=== PATIENT | female | born 1990 | race African-American/Black ===

== ENCOUNTER 2018-01-18 08:00 | Inpatient (IN) | payer OTHER ==
[2018-01-17 14:25] VITALS: BMI 42.8
[2018-01-18] MEDS ORDERED: ROPIVACAINE HCL 0.5% 30ML VIAL ONE (09:40)
[2018-01-18] MEDS ORDERED: DEXAMETHASONE SOD PHOSPHATE/PF 10 MG/ML SDV ONE (09:40)
[2018-01-18] MEDS ORDERED: MIDAZOLAM HCL 2 MG/2 ML SINGLE DOSE VIAL ONE ×2 (09:42)
[2018-01-18] MEDS ORDERED: ONDANSETRON 4 MG/2 ML VIAL IVPUSH PRN (10:25)
[2018-01-18] MEDS ORDERED: LACTATED RINGERS SOLUTION 1,000 ML IV SCH (10:30)
[2018-01-18] MEDS ORDERED: BUPIVACAINE HCL/PF 0.5% (5MG/ML) 10 ML VIAL ONE (10:46)
[2018-01-18] MEDS ORDERED: ROCURONIUM BROMIDE 50 MG/5 ML VIAL ONE ×2 (11:06→12:40)
[2018-01-18] MEDS ORDERED: PROPOFOL 20 ML ONE ×2 (11:06)
--- NOTE | 2018-01-18 11:40 | HP ---
History & Physical Update - History History: No Change - Physical Physical: No Change - Assessment Assessment: No Change - Plan Plan: No Change (Laparoscopic possible open vertical sleeve gastrectomy, possible liver biopsy, EGD)
[2018-01-18] MEDS ORDERED: ceFAZolin SODIUM 1 GM VIAL IVPB ONE (11:45)
[2018-01-18] MEDS ORDERED: ceFAZolin SODIUM 1 GM VIAL ONE ×2 (11:46→12:33)
[2018-01-18] MEDS ORDERED: LIDOCAINE HCL 2% JELLY (5 ML/TUBE) ONE (12:33)
[2018-01-18] MEDS ORDERED: LIDOCAINE HCL/PF 2% SDV 5ML VIAL ONE (12:33)
[2018-01-18] MEDS ORDERED: DEXAMETHASONE SOD PHOSPHATE 4 MG/1 ML VIAL ONE (12:33)
[2018-01-18] MEDS ORDERED: NEOSTIGMINE METHYLSULFATE 0.5 MG/ML - 10 ML MDV ONE (12:35)
[2018-01-18] MEDS ORDERED: GLYCOPYRROLATE 0.2 MG/1 ML VIAL ONE (12:35)
[2018-01-18] MEDS ORDERED: BUPIVACAINE HCL/PF 0.5% (5MG/ML) 10 ML VIAL IJ ONE (12:47)
[2018-01-18] MEDS ORDERED: HYDROmorphone HCL CARPU-JECT 4 MG/1 ML DISP.SYRIN IVPB PRN (13:20)
[2018-01-18] MEDS ORDERED: METOCLOPRAMIDE HCL INJECTION 10 MG/2 ML VIAL IVPUSH SCH (13:30)
[2018-01-18] MEDS: ACETAMINOPHEN 1000 MG/100 ML VIAL (NON FORMULARY) IVPB SCH ×2 (13:45→20:12)
[2018-01-18] MEDS: ONDANSETRON 4 MG/2 ML VIAL IVPUSH SCH ×4 (14:00→21:22)
[2018-01-18 14:07] LABS: HEMATOCRIT 34.3 % (32.4-45.2); MCH 24.8 pg (25.7-33.7); MCHC 32.1 g/dl (32.0-36.0); MEAN CELL VOLUME 77.2 fl (80-96); MEAN PLT VOLUME 8.4 fl (7.5-11.1); PLATELET COUNT 276 K/MM3 (134-434); RBC 4.44 M/mm3 (3.60-5.2); RDW 14.9 % (11.6-15.6); WHITE BLOOD COUNT 22.1 K/mm3 (4.0-10.0)
[2018-01-18 14:37] LABS: ALBUMIN 3.4 g/dl (3.4-5.0); ALK PHOS 70 U/L (45-117); ANION GAP 10 (8-16); BILIRUBIN,TOTAL 0.4 mg/dL (0.2-1.0); BLOOD UREA NITROGEN 10 mg/dL (7-18); CALCIUM 8.8 mg/dL (8.5-10.1); CHLORIDE 103 mmol/L (98-107); CO2 27 mmol/L (21-32); CREATININE 0.7 mg/dL (0.55-1.02); GLUCOSE,RANDOM 147 mg/dL (74-106); POTASSIUM 3.9 mmol/L (3.5-5.1); SGOT/AST 56 U/L (15-37); SGPT/ALT 60 U/L (12-78); SODIUM 140 mmol/L (136-145); TOT PROT 7.1 g/dl (6.4-8.2)
--- NOTE | 2018-01-18 16:17 | SPEC ---
DATE OF OPERATION: 01/18/2018 SURGEON: Nakul Hughes M.D. CUSTOMS MANAGER: Chepe Brooke M.D. PREOPERATIVE DIAGNOSIS: 1. Morbid obesity. 2. Asthma. 3. Hypertension. 4. Body mass index of 42.8. POSTOPERATIVE DIAGNOSIS: Morbid obesity. 2. Asthma. 3. Hypertension. 4. Body mass index of 42.8. 5. Hepatomegaly. PROCEDURES: 1. Laparoscopic vertical sleeve gastrectomy 2. Laparoscopic wedge liver biopsy. 3. Esophagogastroduodenoscopy. ESTIMATED BLOOD LOSS: 100 mL. DRAINS: None. ANESTHESIA: GET. BOUGIE: Size 36 [place]. REASON FOR THE PROCEDURE: This is a 27-year-old female who presents to the office for weight loss options. I have described different options, decided to proceed with a laparoscopic, possible vertical sleeve gastrectomy, possible liver biopsy, possible endoscopy. RISKS AND BENEFITS: After describing the different options for weight loss management, the patient decided to proceed with a laparoscopic, possible open vertical sleeve gastrectomy. The patient was seen by the respective subspecialties and cleared for surgery. The risks and benefits of the procedure were explained. These included bleeding, infection, hernia, OH, DVT, PE, injury to surrounding structures including the liver, colon, bowel, spleen, esophagus, vessel injury, nerve injury, weight regain, gastric leak, staple line leak, sleeve leak, obstruction, vitamin deficiency, hair loss and as some of the possible complications. The patient understood and signed informed consent. DESCRIPTION OF PROCEDURE: The patient was placed supine on the operating room table. The patient underwent general endotracheal intubation. A Okeefe catheter was inserted. The arms were brought out at 90 degrees and secured. A footboard was placed and the legs were secured laterally with padding. The abdomen was prepped and draped in the usual sterile fashion. A timeout was performed. An incision was made in the left upper quadrant and a Veress needle inserted. Pneumoperitoneum was established. Subsequently, the Veress needle was removed and a 12-mm trocar was placed. The laparoscopic camera was then inserted and inspection of the abdominal cavity was performed. An incision was then made in the supraumbilical area and a 15-mm trocar was placed under direct visualization. A 5-mm trocar was then placed in the right upper quadrant and a 5-mm trocar was placed below the left subcostal margin. A stab wound was made in the subxiphoid area and a Kristan clamp inserted and removed to dilate the tract. A Basilio liver retractor was inserted. The post was secured at the bedside by the nursing staff. The patient was placed in steep reverse Trendelenburg position and the Basilio liver retractor was used to secure the liver towards the anterior abdominal wall. The pylorus was identified and 6 cm proximal to it, the lesser sac was entered using the LigaSure device. All lateral attachments to the greater curvature of the stomach, including the short gastric vessels, were ligated using the LigaSure device toward the gastrosplenic and gastrophrenic ligaments. Once this was done in its entirety, it was confirmed that all tubes within the nasal or oropharyngeal cavity, including a temperature probe, was removed by Anesthesia. The bougie was then inserted by Anesthesia. Transection of the stomach was then begun staying adjacent to the bougie but away from the angularis. Transection of the stomach was performed near the portion of the stomach where the lesser sac was entered. Two laparoscopic Endo-BEAU black perez were used at this location. Laparoscopic Endo BEAU purple staple loads were then used for the remainder of the transection until the greater curvature of the stomach was fully transected. This was done staying close to the bougie. Care was taken to stay away from the angle of His cephalad. The staple line was then inspected. Hemostasis was identified. A leak test was then performed. It was clamped distally to the staple line. Irrigation solution was placed in the left upper quadrant and air was insufflated by Anesthesia into the sleeve. No leaks were identified. No obstruction was identified. This was done through the entirety of the staple line. At this point, the irrigation solution was suctioned and again, hemostasis was noted. A wedge liver biopsy was then performed. The left lobe of the liver was identified and a portion of the edge was grasped. Using electrocautery, a wedge of the liver was excised. This was removed and sent off the field as specimen. Hemostasis at the site of the wedge liver biopsy was attained using electrocautery. The 15-mm supraumbilical trocar was then removed and the greater curvature specimen removed from the site using a sponge stick walton. The specimen was inspected and a Veress needle inserted. The specimen insufflated adequately and no leak was identified. The staple line was noted to be intact. A Prabhjot-Mena device was then used to temporarily close the fascia with a 0 Vicryl suture at the site. The 15-mm trocar was then reinserted and the 12-mm trocar in the left upper quadrant was removed. The fascia at this site was then closed using the Prabhjot-Mena device with a 0 Vicryl suture. Again, hemostasis was noted. The Basilio liver retractor was then removed under direct visualization. Pneumoperitoneum was desufflated and the fascial sutures were secured. Hemostasis was noted at all incision sites and Marcaine was injected at all incision sites. All incision sites were closed using 4-0 Biosyn. Sterile dressings were applied. The patient tolerated the procedure well and was transferred to the recovery room in stable condition with the Okeefe catheter intact. The patient was transferred to telemetry for further monitoring. ADDENDUM: At the end of the case, an upper endoscopy was performed. An EGD was inserted into the patient's mouth, esophagus, stomach and gastric pouch. The staple line was inspected. Hemostasis was noted. No leak or obstruction was noted. The stomach was suctioned, the endoscope removed. Patient tolerated the procedure well and transferred to the recovery room in stable condition. Lew [id number]
[2018-01-18 16:52] LABS: PLATELET ESTIMATE ADEQUATE
[2018-01-18] MEDS: SODIUM CHLORIDE 1,000 ML IV SCH (17:32)
[2018-01-18] MEDS: METOCLOPRAMIDE HCL INJECTION 10 MG/2 ML VIAL IVPUSH SCH ×2 (17:35→20:22)
[2018-01-18] MEDS: HYDROmorphone HCL CARPU-JECT 1 MG/1 ML DISP.SYRIN IVPB PRN ×2 (18:52→23:35)
[2018-01-18] MEDS: ENOXAPARIN NA (PORCINE) 40 MG/0.4 ML DISP.SYRIN SQ SCH (21:22)
[2018-01-18] MEDS: FAMOTIDINE 20 MG/50 ML IVPB 20 MG/50 ML MG IVPB SCH (21:22)
[2018-01-18] MEDS ORDERED: ALBUTEROL SO4 18 GM HFA INHALER IH PRN (21:34)
[2018-01-19] MEDS: ACETAMINOPHEN 1000 MG/100 ML VIAL (NON FORMULARY) IVPB SCH ×2 (00:32→06:38)
[2018-01-19] MEDS: ONDANSETRON 4 MG/2 ML VIAL IVPUSH SCH ×7 (01:03→21:41)
[2018-01-19] MEDS: SODIUM CHLORIDE 1,000 ML IV SCH ×2 (02:02→12:33)
[2018-01-19] MEDS: METOCLOPRAMIDE HCL INJECTION 10 MG/2 ML VIAL IVPUSH SCH ×5 (02:02→21:38)
[2018-01-19] MEDS ORDERED: HYDROmorphone HCL CARPU-JECT 4 MG/1 ML DISP.SYRIN IVPB PRN (05:53)
[2018-01-19 07:24] LABS: ALBUMIN 3.5 g/dl (3.4-5.0); ANION GAP 10 (8-16); BLOOD UREA NITROGEN 8 mg/dL (7-18); CALCIUM 8.4 mg/dL (8.5-10.1); CHLORIDE 103 mmol/L (98-107); CO2 27 mmol/L (21-32); CREATININE 0.6 mg/dL (0.55-1.02); GLUCOSE,RANDOM 105 mg/dL (74-106); POTASSIUM 3.8 mmol/L (3.5-5.1); SGOT/AST 75 U/L (15-37); SGPT/ALT 92 U/L (12-78); SODIUM 140 mmol/L (136-145); TOT PROT 7.2 g/dl (6.4-8.2)
[2018-01-19 07:26] LABS: ALK PHOS 66 U/L (45-117); BILIRUBIN,TOTAL 0.7 mg/dL (0.2-1.0)
[2018-01-19 07:45] LABS: HEMATOCRIT 34.5 % (32.4-45.2); HEMOGLOBIN 10.9 GM/dL (10.7-15.3); MCH 24.4 pg (25.7-33.7); MCHC 31.5 g/dl (32.0-36.0); MEAN CELL VOLUME 77.7 fl (80-96); MEAN PLT VOLUME 8.7 fl (7.5-11.1); PLATELET COUNT 259 K/MM3 (134-434); RBC 4.44 M/mm3 (3.60-5.2); RDW 15.1 % (11.6-15.6); WHITE BLOOD COUNT 16.4 K/mm3 (4.0-10.0)
--- NOTE | 2018-01-19 09:04 | PN ---
Progress Note (short form) - Note Progress Note: Anesthesiology Post-op/Pain Service 27 y.o. POD#1 s/p laparoscopic gastric sleeve under GA with TAP blocks. Pt is feeling well with good pain control. She does c/o some nausea but it is improved with medication. VSS. No apparent anesthesia-related issues. Stable post-operative course. Continue management as per primary team.
[2018-01-19] MEDS: FAMOTIDINE 20 MG/50 ML IVPB 20 MG/50 ML MG IVPB SCH ×2 (09:38→21:38)
[2018-01-19] MEDS: ENOXAPARIN NA (PORCINE) 40 MG/0.4 ML DISP.SYRIN SQ SCH ×2 (09:41→21:38)
--- NOTE | 2018-01-19 10:53 | PN ---
Progress Note (short form) - Note Progress Note: POD #1 No acute events since surgery per RN notes. Alert. Doing well. C/o incisional tenderness. Adequate pain control ia prn meds. She is OOB and ambulating. Voiding spontaneously. Denies n/v/f/c, CP, palpitations or SOB. UGI 01/19: no extravasation/leak or gastric outlet obstruction ass. afebrile Gen: nad Abd: surgical ports c/d/i. No hematoma LE: soft. nt bilat Problem List - Problems (1) Morbid obesity due to excess calories Assessment/Plan: Bariatric Stage 1 diet ordered Cont oob and ambulate Pain management prn dc planning 01/20 Code(s): E66.01 - MORBID (SEVERE) OBESITY DUE TO EXCESS CALORIES
[2018-01-19] MEDS ORDERED: ALBUTEROL SO4 0.042% IH SOL 1.25 MG/3 ML VIAL.NEB NEB PRN (14:26)
[2018-01-19] MEDS ORDERED: ALBUTEROL SO4 0.083% IH SOL 2.5 MG/3 ML VIAL.NEB. NEB ONE (14:29)
--- NOTE | 2018-01-19 15:16 | CON.PULM ---
Consult Consult Specialty:: PULMONARY Referred by:: CAR Reason for Consultation:: SOB - History of Present Illness Chief Complaint: SOB NO PLEURITIC CHEST PAIN History of Present Illness: 27 OBESE AA FEMALE S/P BARIATRIC SURGERY THIS ADMISSION COMPLAINING OF CHEST TIGHTNESS AND MILD SOB. PATIENT HAS A H/O B.A. AND HTN. SHE TAKES VENTOLIN PRN FPR ASTHMA, AND HAS BEEN STABLE LATELY. - History Source History Provided By: Patient, Medical Record Limitations to Obtaining History: No Limitations - Past Medical History BUSINESS SYSTEM MANAGER: No: CVA Cardio/Vascular: Yes: HTN. No: Aneurysm Pulmonary: Yes: Asthma. No: Bronchitis Gastrointestinal: No: Ascites Hepatobiliary: No: Cirrhosis Renal/: No: Renal Failure ...LMP: 01/16/18 ...: No Heme/Onc: No: Anemia - Past Surgical History Additional Surgical History: BREAST REDUCTION - Alcohol/Substance Use Hx Alcohol Use: No - Smoking History Smoking history: Never smoked Have you smoked in the past 12 months: No Aproximately how many cigarettes per day: 0 - Social History Place of : [facility] History of Recent Travel: No Home Medications - Allergies Allergies/Adverse Reactions: Allergies Allergy/AdvReac Type Severity Reaction Status Date / Time No Known Allergies Allergy Verified 01/18/18 09:53 - Home Medications Home Medications: Ambulatory Orders Albuterol Sulfate Inhaler - [Ventolin Hfa Inhaler -] 1 - 2 inh PO PRN PRN Amlodipine Besylate [Norvasc -] 2.5 mg PO DAILY 01/17/18 Hydrochlorothiazide [Hctz -] 12.5 mg PO DAILY 01/17/18 Famotidine [Pepcid] 20 mg PO BID #60 tablet 01/18/18 Oxycodone HCl/Acetaminophen [Percocet 5-325 mg Tablet] 1 - 2 tab PO Q6H #28 tab MDD 4 01/18/18 Family Disease History - Family Disease History Family History: Unremarkable Review of Systems - Review of Systems Respiratory: reports: Other (MILD CHEST TIGHTNESS) Gastrointestinal: reports: No Symptoms Genitourinary: reports: No Symptoms Breasts: reports: No Symptoms Reported Musculoskeletal: reports: No Symptoms Integumentary: reports: No Symptoms Neurological: reports: No Symptoms Endocrine: reports: No Symptoms Hematology/Lymphatic: reports: No Symptoms Physical Exam Vital Sings: Vital Signs Temperature 98.1 F 02/23/18 10:00 Pulse Rate 79 01/19/18 10:00 Respiratory Rate 20 01/19/18 10:00 Blood Pressure 153/81 01/19/18 10:00 O2 Sat by Pulse Oximetry (%) 97 01/19/18 09:00 Constitutional: Yes: Calm Eyes: Yes: EOM Intact HENT: Yes: Normocephalic Neck: Yes: Trachea Midline Cardiovascular: Yes: Regular Rate and Rhythm, S1, S2 Respiratory: Yes: CTA Bilaterally Gastrointestinal: Yes: Normal Bowel Sounds Edema: No Integumentary: Yes: WNL Neurological: Yes: Alert Labs: CBC, BMP 01/19/18 06:30 01/19/18 06:30 REST REVIEWED Imaging - Results EKG: Pending Problem List - Problems (1) Asthma Code(s): J45.909 - UNSPECIFIED ASTHMA, UNCOMPLICATED (2) BMI 40.0-44.9, adult Code(s): Z68.41 - BODY MASS INDEX (BMI) 40.0-44.9, ADULT (3) Morbid obesity due to excess calories Code(s): E66.01 - MORBID (SEVERE) OBESITY DUE TO EXCESS CALORIES Assessment/Plan ATYPICAL CHEST TIGHTNESS NO WHEEZE AUSCULTATED/ SPO2 97%ON ROOM AIR/NO OBVIOUS RESP DISTRESS/NO TACHYCARDIA HAVE ORDERED CXR/EKG NEB PRN WILL CONTINUE TO OBSERVE FOR NOW ON TELE Asael DEJESUS MD
--- NOTE | 2018-01-19 16:27 | PN ---
Progress Note (short form) - Note Progress Note: POD 1 Pain controlled No nausea Vital Signs Period Temp Pulse Resp BP Sys/Prieto Pulse Ox Last 24 Hr 98.1 F-99.7 F 71-99 20-20 120-155/72-84 97-97 Abd soft CBC, BMP 01/19/18 06:30 01/19/18 06:30 UGI: no leak/obstruction Clears Ambulation
[2018-01-19] MEDS: oxyCODONE HCL 5 MG TABLET PO PRN (21:55)
[2018-01-20] MEDS: METOCLOPRAMIDE HCL INJECTION 10 MG/2 ML VIAL IVPUSH SCH ×2 (02:39→09:30)
[2018-01-20] MEDS: ONDANSETRON 4 MG/2 ML VIAL IVPUSH SCH ×4 (02:39→13:49)
[2018-01-20] MEDS: oxyCODONE HCL 5 MG TABLET PO PRN (02:56)
[2018-01-20] MEDS: ENOXAPARIN NA (PORCINE) 40 MG/0.4 ML DISP.SYRIN SQ SCH (09:30)
[2018-01-20] MEDS: FAMOTIDINE 20 MG/50 ML IVPB 20 MG/50 ML MG IVPB SCH (09:30)
--- NOTE | 2018-01-20 13:24 | PN ---
Progress Note (short form) - Note Progress Note: PULMONARY NO CP NO SOB VSS/AFEBRILE CLEAR LUNGS RSR S/P BARIATRIC SURG NO EDEMA CXR NO INFILTRATE/BIBASILAR ATELECTASIS LIKELY FROM SPLINTING EKG IS NORMAL OK FOR DISCHARGE FROM PULMONARY STANDPOINT Asael DEJESUS MD Problem List - Problems (1) Asthma Code(s): J45.909 - UNSPECIFIED ASTHMA, UNCOMPLICATED (2) BMI 40.0-44.9, adult Code(s): Z68.41 - BODY MASS INDEX (BMI) 40.0-44.9, ADULT (3) Morbid obesity due to excess calories Code(s): E66.01 - MORBID (SEVERE) OBESITY DUE TO EXCESS CALORIES
[2018-01-20] MEDS: SODIUM CHLORIDE 1,000 ML IV SCH (13:48)
[2018-01-20 13:50] VITALS: BP 139/85; PULSE 96; TEMP 99.4
--- NOTE | 2018-01-22 17:50 | PATH ---
Surgical Pathology Report Patient Name: AVERY BENITES [facility]. Rec. #: [id number] /Age/Gender: 1990 (Age: 27) / F Account: [id number] Location: 4 W TELEMETRY U Taken: 01/18/2018 Received: 01/19/2018 Reported: 01/22/2018 Physicians: Nakul Hughes M.D. Specimen(s) Received A: GREATER CURVATURE STOMACH B: LIVER BIOPSY Clinical History Morbid obesity Final Diagnosis A. STOMACH, GREATER CURVATURE, LAPAROSCOPIC VERTICAL SLEEVE GASTRECTOMY: PORTION OF STOMACH WITH MILD CHRONIC GASTRITIS. IMMUNOHISTOCHEMICAL STAIN FOR H. PYLORI IS NEGATIVE. B. LIVER, BIOPSY: LIVER PARENCHYMA WITH MILD STEATOSIS (<15 %). NO INCREASE IN IRON AND FIBROSIS ON PERFORMED SPECIAL STAINS (IRON AND TRICHROME). Electronically Signed Naomy Shipman M.D. Gross Description A. Received in formalin, labeled "greater curvature of stomach," is a 107 gram, 15.0 x 4.0 x 2.5 cm. portion of stomach with a stapled margin of resection. The serosa is acevedo-sloan with minimal attached fat. The mucosa is acevedo-pink with normal folds. No mucosal masses are identified. Bottom Precipitator Operator sections are submitted in one cassette. B. Received in formalin labeled "liver biopsy," are 2 acevedo, irregular portions of liver tissue measuring 2.0 x 1.0 x 0.9 cm and 3.0 x 1.8 x 1.0 cm. Bottom Precipitator Operator sections are submitted in one cassette. /01/19/2018 saudi01/19/2018
--- NOTE | 2018-01-23 11:44 | EKG ---
Test Reason : Blood Pressure : / mmHG Vent. Rate : 093 BPM Atrial Rate : 093 BPM P-R Int : 170 ms QRS Dur : 088 ms QT Int : 360 ms P-R-T Axes : 054 -03 022 degrees QTc Int : 447 ms NORMAL SINUS RHYTHM MINIMAL VOLTAGE CRITERIA FOR LVH, MAY BE NORMAL VARIANT BORDERLINE ECG NO PREVIOUS ECGS AVAILABLE Confirmed by MD Kuldip, Abilio ([id number]) on 01/23/2018 11:44:05 AM Referred By: Confirmed By:Abilio Christiansen MD
== END 2018-01-20 15:50 | disposition home or self-care (01) | DRG 403 ==
LOC: JSAMEDAYSX 08:52 → EDSTATUS 09:00 → J4W 15:19
PROVIDERS: ADMIT Surgery; ATTEND Surgery
PROC: 0DB64Z3 Excision of Stomach, Percutaneous Endoscopic Approach, Vertical (ICD-10-PCS; principal; 2018-01-18 11:00)
PROC: 0FB24ZX Excision of Left Lobe Liver, Percutaneous Endoscopic Approach, Diagnostic (ICD-10-PCS; 2018-01-18 11:00)
PROC: 0DJ08ZZ Inspection of Upper Intestinal Tract, Via Natural or Artificial Opening Endoscopic (ICD-10-PCS; 2018-01-18 11:00)
DX: E66.01 Morbid (severe) obesity due to excess calories (principal); Z68.41 Body mass index [BMI] 40.0-44.9, adult; R16.0 Hepatomegaly, not elsewhere classified; I10 Essential (primary) hypertension; J45.909 Unspecified asthma, uncomplicated
CPT/HCPCS: 36415; 71045-TC-FY; 74241-TC-FY; 80053; 84703; 85027; 86850; 86900; 86901; 88307-TC; 93005; 93010; 94010; 94640; 94760

== ENCOUNTER 2019-06-15 11:36 | Emergency (ER) | payer OTHER ==
[2019-06-15 11:45] VITALS: BP 125/82; PULSE 85; TEMP 98.5; BMI 31.7
--- NOTE | 2019-06-15 12:28 | PDOC ---
History of Present Illness - General Chief Complaint: Pain Stated Complaint: ABD. PAIN Time Seen by Provider: 06/15/19 11:54 History Source: Patient Exam Limitations: No Limitations Past History - Past Medical History Allergies/Adverse Reactions: Allergies Allergy/AdvReac Type Severity Reaction Status Date / Time No Known Allergies Allergy Verified 06/15/19 11:45 Home Medications: Ambulatory Orders Albuterol Sulfate Inhaler - [Ventolin Hfa Inhaler -] 1 - 2 inh PO PRN PRN Amlodipine Besylate [Norvasc -] 2.5 mg PO DAILY 01/17/18 Hydrochlorothiazide [Hctz -] 12.5 mg PO DAILY 01/17/18 Famotidine [Pepcid] 20 mg PO BID #60 tablet 01/18/18 Oxycodone HCl/Acetaminophen [Percocet 5-325 mg Tablet] 1 - 2 tab PO Q6H #28 tab MDD 4 01/18/18 Anemia: No Asthma: Yes Cancer: No Cardiac Disorders: No CVA: No COPD: No CHF: No Dementia: No Diabetes: No GI Disorders: No Disorders: No HTN: Yes Hypercholesterolemia: No Liver Disease: No Seizures: No Thyroid Disease: No - Surgical History Gastric Stapling: Yes (gastric sleeve 12/2016) - Reproductive History (#): 2 Para: 1 Therapeutic (s) & number: No Spontaneous : 0 - Immunization History Immunization Up to Date: No - Suicide/Smoking/Psychosocial Hx Smoking Status: No Smoking History: Never smoked Have you smoked in the past 12 months: No Number of Cigarettes Smoked Daily: 0 Hx Alcohol Use: No Drug/Substance Use Hx: No Substance Use Type: None Hx Substance Use Treatment: No *Physical Exam - Vital Signs Last Vital Signs Temp Pulse Resp BP Pulse Ox 98.5 F 85 18 125/82 100 06/15/19 11:43 06/15/19 11:43 06/15/19 11:43 06/15/19 11:43 06/15/19 11:43 - Physical Exam General Appearance: Yes: Nourished Respiratory/Chest: positive: Lungs Clear, Normal Breath Sounds. negative: Respiratory Distress Cardiovascular: positive: Regular Rhythm, Regular Rate, S1, S2. negative: Murmur Gastrointestinal/Abdominal: positive: Normal Bowel Sounds, Soft. negative: Tender, Distended, Guarding, Rebound Musculoskeletal: negative: CVA Tenderness Neurologic: positive: Alert, Normal Mood/Affect ED Treatment Course - LABORATORY CBC & Chemistry Diagram: 06/15/19 12:19 06/15/19 12:19 - RADIOLOGY Radiology Studies Ordered: Category Date Time Status ABDOMEN US -LIMITED [US] Stat Ultrasound 06/15/19 12:06 Ordered Medical Decision Making - Medical Decision Making 28 y/o F hx of gastric sleeve 12/2016, HTN, breast reduction presents with dull 2 -3/10 RUQ pain x 2 days worse with bending abdomen and flexing her R hip. Pain is not associated with food intake. Denies fever, sob, cp, n/v/d, urinary complaints, vag bleeding. LNMP 05/28. Has not tried anything for pain at home Currently patient appears comfortable Less suspicious for acute abdomen Consider MSK pain? gallstones? Plan: Labs, RUQ sono Patient currently does not want pain meds 06/15/19 12:26 Labs unremarkable RUQ sono with fatty liver, no other acute findings noted Patient still appears comfortable with no abdominal tenderness on exam Given copy of US results Return precautions discussed 06/15/19 13:44 *DC/Admit/Observation/Transfer Diagnosis at time of Disposition: Right upper quadrant pain - Discharge Dispostion Disposition: HOME Condition at time of disposition: Stable Decision to Admit order: No - Referrals Referrals: Gracia Skinner MD [Primary Care Provider] - 2 Days - Patient Instructions Printed Discharge Instructions: DI for Abdominal Pain-Adult Additional Instructions: Thank you for choosing [facility]. It was a pleasure taking care of you. Your labs were unremarkable Your ultrasound showed fatty liver - recommend decreasing intake of fatty food in your diet Please follow-up with your regular doctor in 2 days Return to the Emergency Department if your symptoms worsen or persist, you have fever, shortness of breath, chest pain, severe abdominal pain, vomiting or other concerning symptoms. - Post Discharge Activity
[2019-06-15 13:04] LABS: BASO % 0.4 % (0-2.0); EOS % 0.8 % (0-4.5); HEMOGLOBIN 12.2 GM/dL (10.7-15.3); LYMPH % 32.4 % (8-40); MCH 26.8 pg (25.7-33.7); MCHC 32.9 g/dl (32.0-36.0); MEAN CELL VOLUME 81.6 fl (80-96); MEAN PLT VOLUME 9.1 fl (7.5-11.1); MONO % 10.1 % (3.8-10.2); NEUT % 56.3 % (42.8-82.8); PLATELET COUNT 243 K/MM3 (134-434); RBC 4.54 M/mm3 (3.60-5.2); RDW 13.2 % (11.6-15.6); WHITE BLOOD COUNT 5.9 K/mm3 (4.0-10.0)
[2019-06-15 13:14] LABS: ALBUMIN 3.4 g/dl (3.4-5.0); BILIRUBIN,TOTAL 0.1 mg/dL (0.2-1); BLOOD UREA NITROGEN 6.6 mg/dL (7-18); CALCIUM 8.6 mg/dL (8.5-10.1); CREATININE 0.8 mg/dL (0.55-1.3); TOT PROT 7.3 g/dl (6.4-8.2)
== END 2019-06-15 15:23 | disposition home or self-care (01) ==
LOC: JER 11:36
DX: R10.11 Right upper quadrant pain (principal); I10 Essential (primary) hypertension; Z98.84 Bariatric surgery status; J45.909 Unspecified asthma, uncomplicated
CPT/HCPCS: 36415; 76705-TC; 80053; 83690; 84703; 85025; 99282-25

== ENCOUNTER 2019-12-21 12:51 | Emergency (ER) | payer OTHER ==
[2019-12-21 12:55] VITALS: BP 125/81; PULSE 88; TEMP 98.6; BMI 31.7
[2019-12-21] MEDS ORDERED: MECLIZINE HCL 25 MG TABLET (FP) PO ONE (13:27)
--- NOTE | 2019-12-21 13:27 | PDOC ---
History of Present Illness - General Chief Complaint: Lightheaded Stated Complaint: DIZZYNESS History Source: Patient Exam Limitations: No Limitations - History of Present Illness Initial Comments: 12/21/19 13:21 29 yo female pmh of HTN and asthma presents to the ED for 3 days of constant dizziness and lightheadedness. 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 BP prior to treatment averaged 140 systolic, now 120 systolic. The dizziness is described as the room spinning around her. Denies ear pain, recent illness, sick contacts, headaches, changes in vision, weakness or sensory deficits on 1 side, unsteadiness/ataxia, F/C/N/V, confusion, LOC, syncope/pre-syncope, CP, palpitations, Fhx of sudden cardiac or NE, SOB, abdominal pain, changes in bowel or bladder habits. Pt saw her PCP, had blood work brought into ED, 11/28/2019, H/H 11.8/37.9, chem 10 WNL including electrolytes, lipi studies WNL, UA WNL Past History - Past Medical History Allergies/Adverse Reactions: Allergies Allergy/AdvReac Type Severity Reaction Status Date / Time No Known Allergies Allergy Verified 06/15/19 11:45 Home Medications: Ambulatory Orders Albuterol Sulfate Inhaler - [Ventolin Hfa Inhaler -] 1 - 2 inh PO PRN PRN Amlodipine Besylate [Norvasc -] 2.5 mg PO DAILY 01/17/18 Hydrochlorothiazide [Hctz -] 12.5 mg PO DAILY 01/17/18 Famotidine [Pepcid] 20 mg PO BID #60 tablet 01/18/18 Oxycodone HCl/Acetaminophen [Percocet 5-325 mg Tablet] 1 - 2 tab PO Q6H #28 tab MDD 4 01/18/18 Anemia: No Asthma: Yes Cancer: No Cardiac Disorders: No CVA: No COPD: No CHF: No Dementia: No Diabetes: No GI Disorders: No Disorders: No HTN: Yes Hypercholesterolemia: No Liver Disease: No Seizures: No Thyroid Disease: No - Surgical History Gastric Stapling: Yes (gastric sleeve 12/2016) - Reproductive History (#): 2 Para: 1 Therapeutic (s) & number: No Spontaneous : 0 - Immunization History Immunization Up to Date: No - Psycho Social/Smoking Cessation Hx Smoking Status: No Smoking History: Never smoked Have you smoked in the past 12 months: No Number of Cigarettes Smoked Daily: 0 Information on smoking cessation initiated: No Hx Alcohol Use: No Drug/Substance Use Hx: No Substance Use Type: None Hx Substance Use Treatment: No Review of Systems - Review of Systems Constitutional: No: Chills, Fever HEENTM: No: Eye Pain, Blurred Vision, Double Vision, Ear Pain, Ear Discharge Respiratory: No: Shortness of Breath Cardiac (ROS): No: Chest Pain ABD/GI: No: Abdominal Distended, Constipated, Diarrhea, Nausea, Vomiting : No: Burning, Dysuria, Frequency, Flank Pain Musculoskeletal: No: Back Pain, Neck Pain Neurological: Yes: Dizziness, Other (lightheadedness). No: Headache, Numbness, Paresthesia, Weakness, Unsteady Gait, Ataxia *Physical Exam - Vital Signs Last Vital Signs Temp Pulse Resp BP Pulse Ox 98.6 F 88 18 125/81 100 12/21/19 12:54 12/21/19 12:54 12/21/19 12:54 12/21/19 12:54 12/21/19 12:54 - Physical Exam General Appearance: Yes: Nourished, Appropriately Dressed. No: Apparent Distress HEENT: positive: EOMI, MAK Neck: positive: Supple. negative: Carotid bruit, Rigidity, Tender lateral, Tender midline Respiratory/Chest: positive: Lungs Clear, Normal Breath Sounds. negative: Respiratory Distress, Accessory Muscle Use, Rapid RR, Crackles, Rales, Rhonchi, Stridor, Wheezing Cardiovascular: positive: Regular Rhythm, Regular Rate, S1, S2. negative: Edema , JVD, Murmur Vascular Pulses: Dorsalis-Pedis (R): 4+, Doralis-Pedis (L): 4+ Gastrointestinal/Abdominal: positive: Flat, Soft. negative: Pulsatile Mass, Protuberent, Distended, Guarding, Rebound, Tenderness Musculoskeletal: negative: CVA Tenderness Extremity: positive: Normal Capillary Refill, Normal Inspection, Normal Range of Motion Integumentary: positive: Normal Color, Dry, Warm Neurologic: positive: car body mechanic II-XII NML intact, Fully Oriented, Alert, Normal Mood/ Affect, Normal Response, Motor Strength 5/5, Other (neg rhombergs ). negative: Facial Droop, Numbness, Sensory Deficit, Confused, Disoriented Medical Decision Making - Medical Decision Making 12/21/19 13:34 29 yo female pmh of HTN and asthma presents to the ED for 3 days of constant dizziness and lightheadedness. 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 BP prior to treatment averaged 140 systolic, now 120 systolic. The dizziness is described as the room spinning around her. Denies ear pain, recent illness, sick contacts, headaches, changes in vision, weakness or sensory deficits on 1 side, unsteadiness/ataxia, F/C/N/V, confusion, LOC, syncope/pre-syncope, CP, palpitations, Fhx of sudden cardiac or NE, SOB, abdominal pain, changes in bowel or bladder habits. Pt saw her PCP, had blood work brought into ED, 11/28/2019, H/H 11.8/37.9, chem 10 WNL including electrolytes, lipi studies WNL, UA WNL Vitals WNL Pt well appearing, no acute distress, ambulates without difficulty in a straight line, Rhomberg neg. Ear exam normal TM, no infection will do preg test, EKG, finger stick and meclizine will reassess 12/21/19 14:40 After meclizine pt feels mmuch better, no longer dizzy Preg neg, finger stick 90 Pt safe for DC home with PCP follow up and 1 week of Meclizine. Strict return precautions given Discharge - Discharge Information Problems reviewed: Yes Clinical Impression/Diagnosis: Dizziness Condition: Improved Disposition: HOME - Admission No - Follow up/Referral Referrals: Gracia Skinner MD [Primary Care Provider] - - Patient Discharge Instructions Patient Printed Discharge Instructions: Vertigo Additional Instructions: Please see your Primary Doctor within the next 48 hours. Take the medication Meclizine as prescribed over the next 1 week and discuss further treatment with your primary doctor if required. Return to the ER for new or concerning symptoms including but not limited to: headaches, loss of consciousness, weakness or sensory changes on 1 side of your body, inability to eat or drink. Thank you - Post Discharge Activity
[2019-12-21] MEDS ORDERED: MECLIZINE HCL 25 MG TABLET (FP) ONE (13:31)
--- NOTE | 2019-12-21 15:04 | PDOC ---
Documentation entered by Gaviota Moody SCRIBE, acting as scribe for Aixa Allen MD. Aixa Allen MD: This documentation has been prepared by the Heidy lloyd Nirvannie, SCRIBE, under my direction and personally reviewed by me in its entirety. I confirm that the documentation accurately reflects all work, treatment, procedures, and medical decision making performed by me. Attending Attestation - Resident Resident Name: Hua Mcdermott - ED Attending Attestation I have performed the following: I have examined & evaluated the patient, The case was reviewed & discussed with the resident, I agree w/resident's findings & plan, Exceptions are as noted - HPI HPI: The patient is a 29 year old female, with a significant past medical history of HTN and Asthma, who presents to the emergency department with 3 days of dizziness and lightheadedness. Patient describes her dizziness as room spinning. She endorses a new job 6 days ago with high stress, and a recent medication addition of 12.5mg HCTZ 11 days ago. - Physicial Exam PE: GENERAL: Awake, alert, and fully oriented, in no acute distress HEAD: No signs of trauma EYES: PERRLA, EOMI, sclera anicteric, conjunctiva clear ENT: Auricles normal inspection, hearing grossly normal, nares patent, oropharynx clear without exudates. Moist mucosa NECK: Normal ROM, supple, no lymphadenopathy, JVD, or masses LUNGS: Breath sounds equal, clear to auscultation bilaterally. No wheezes, and no crackles HEART: Regular rate and rhythm, normal S1 and S2, no murmurs, rubs or gallops ABDOMEN: Soft, nontender, normoactive bowel sounds. No guarding, no rebound. No masses EXTREMITIES: Normal range of motion, no edema. No clubbing or cyanosis. No cords, erythema, or tenderness NEUROLOGICAL: Cranial nerves II through XII grossly intact. Normal speech, normal gait. Motor and sensation intact SKIN: Warm, dry, normal turgor, no rashes or lesions noted. - Medical Decision Making Pt with vertiginous symptoms. Vertigo appears to be peripheral. No neuro deficits. Improved with meclizine. Stable for DC home.
--- NOTE | 2019-12-22 12:36 | EKG ---
Test Reason : Blood Pressure : / mmHG Vent. Rate : 080 BPM Atrial Rate : 080 BPM P-R Int : 176 ms QRS Dur : 074 ms QT Int : 372 ms P-R-T Axes : 056 011 027 degrees QTc Int : 429 ms POOR DATA QUALITY, INTERPRETATION MAY BE ADVERSELY AFFECTED NORMAL SINUS RHYTHM NORMAL ECG WHEN COMPARED WITH ECG OF 19-JAN-2018 15:00, NO SIGNIFICANT CHANGE WAS FOUND Confirmed by KIMBERLY BUNN MD ([id number]) on 12/22/2019 12:35:49 PM Referred By: Confirmed By:KIMBERLY BUNN MD
== END 2019-12-21 15:15 | disposition home or self-care (01) ==
LOC: JER 12:51
DX: R42 Dizziness and giddiness (principal); I10 Essential (primary) hypertension; J45.909 Unspecified asthma, uncomplicated; Z98.84 Bariatric surgery status
CPT/HCPCS: 82962; 84703; 93005; 93010; 99283-25

== ENCOUNTER 2021-03-14 07:33 | Emergency (ER) | payer OTHER ==
[2021-03-14 07:46] VITALS: BP 123/66; PULSE 89; TEMP 98; BMI 35.4
[2021-03-14 08:51] LABS: EPITHELIAL CELLS MANY /hpf
== END 2021-03-14 08:53 | disposition home or self-care (01) ==
LOC: FER 07:33
DX: B37.9 Candidiasis, unspecified (principal)
CPT/HCPCS: 81003; 81015; 99283-25

== ENCOUNTER 2021-08-07 06:35 | Emergency (ER) | payer OTHER ==
[2021-08-07 07:04] VITALS: BMI 28.0
[2021-08-07 08:02] LABS: BASO % 0.3 % (0-2.0); EOS % 0.3 % (0-4.5); HEMATOCRIT 31.5 % (32.4-45.2); HEMOGLOBIN 10.6 GM/dL (10.7-15.3); LYMPH % 18.1 % (8-40); MCH 26.7 pg (25.7-33.7); MCHC 33.5 g/dl (32.0-36.0); MEAN CELL VOLUME 79.6 fl (80-96); MEAN PLT VOLUME 8.2 fl (7.5-11.1); MONO % 10.2 % (3.8-10.2); NEUT % 71.1 % (42.8-82.8); PLATELET COUNT 192 10^3/uL (134-434); RBC 3.96 M/mm3 (3.60-5.2); RDW 17.9 % (11.6-15.6); WHITE BLOOD COUNT 7.8 K/mm3 (4.0-10.0)
[2021-08-07 08:08] LABS: INR 0.99 (0.83-1.09)
[2021-08-07 08:11] LABS: ACTIVATED PTT 26.9 SECONDS (25.2-36.5)
[2021-08-07 10:45] VITALS: BP 99/68; PULSE 83; TEMP 98.8
== END 2021-08-07 10:50 | disposition home or self-care (01) ==
LOC: JER 06:35
DX: O99.513 Diseases of the respiratory system complicating pregnancy, third trimester (principal); J98.01 Acute bronchospasm; Z3A.40 40 weeks gestation of pregnancy
CPT/HCPCS: 36415; 71046-TC-FY; 85025; 85379; 85610; 85730; 99284-25; C9803; U0003; U0005

== ENCOUNTER 2021-08-12 22:39 | Inpatient (IN) | payer OTHER ==
[2021-08-13] MEDS ORDERED: DEXTROSE 5%-LACTATED RINGERS 1,000 ML IV SCH ×2 (00:15→01:30)
[2021-08-13 00:23] VITALS: BMI 35.4
[2021-08-13] MEDS ORDERED: PENICILLIN G POTASSIUM 20,000,000 (20Mm) UNITS VIAL IVPB ONE ×3 (00:32→01:31)
[2021-08-13] MEDS ORDERED: PENICILLIN G POTASSIUM 5,000,000 (5Mm) UNIT VIAL IVPB ONE (03:30)
[2021-08-13 03:36] LABS: BASO % 0.2 % (0-2.0); EOS % 0.5 % (0-4.5); HEMATOCRIT 33.5 % (32.4-45.2); HEMOGLOBIN 11.1 GM/dL (10.7-15.3); LYMPH % 18.3 % (8-40); MCH 26.4 pg (25.7-33.7); MCHC 33.1 g/dl (32.0-36.0); MEAN CELL VOLUME 79.6 fl (80-96); MEAN PLT VOLUME 8.5 fl (7.5-11.1); MONO % 8.7 % (3.8-10.2); NEUT % 72.3 % (42.8-82.8); PLATELET COUNT 203 10^3/uL (134-434); RBC 4.21 M/mm3 (3.60-5.2); RDW 17.9 % (11.6-15.6); WHITE BLOOD COUNT 9.3 K/mm3 (4.0-10.0)
[2021-08-13 03:37] LABS: INR 0.94 (0.83-1.09); PROTHROMBIN TIME (PATIENT) 11.4 SEC (9.7-13.0)
[2021-08-13 03:40] LABS: ACTIVATED PTT 27.9 SECONDS (25.2-36.5)
[2021-08-13 03:42] LABS: CALCIUM 8.4 mg/dL (8.5-10.1)
[2021-08-13 03:44] LABS: BLOOD UREA NITROGEN 5.7 mg/dL (7-18)
[2021-08-13 03:46] LABS: CREATININE 0.7 mg/dL (0.55-1.3)
[2021-08-13] MEDS ORDERED: PCA PUMP NR ONE (03:56)
[2021-08-13] MEDS ORDERED: FENTANYL/BUPIVACAINE/NS/PF - PCEA - 50 ML DISP.SYRIN EP ONE (03:56)
[2021-08-13] MEDS ORDERED: BUPIVACAINE HCL/PF 0.25% (2.5MG/ML) 10 ML VIAL ONE (04:10)
[2021-08-13] MEDS ORDERED: NALOXONE HCL 0.4 MG/ML VIAL IVPUSH PRN (04:30)
[2021-08-13] MEDS ORDERED: FENTANYL/BUPIVACAINE/NS/PF - PCEA - 50 ML DISP.SYRIN EP SCH ×2 (04:30→06:36)
[2021-08-13] MEDS ORDERED: OXYTOCIN 20 UNITS in 0.9% NS 20 UNIT/1,000 ML INFUS.BAG IV ONE ×2 (04:59→08:32)
[2021-08-13] MEDS: OXYTOCIN 20 UNITS in 0.9% NS 20 UNIT/1,000 ML INFUS.BAG IV SCH ×2 (05:34→08:37)
[2021-08-13] MEDS ORDERED: ACETAMINOPHEN 325 MG TABLET (FP) PO PRN (05:42)
[2021-08-13] MEDS ORDERED: BENZOCAINE 28 GM HEMORRHOIDAL OINTMENT TP PRN (05:42)
[2021-08-13] MEDS ORDERED: WITCH HAZEL 50% (TUCKS) 40 PAD/JAR PAD TP PRN (05:42)
[2021-08-13] MEDS ORDERED: BENZOCAINE 20% 57 GM BOTTLE TP PRN (05:42)
[2021-08-13] MEDS ORDERED: OXYTOCIN 20 UNITS in 0.9% NS 1000 ML INFUS.BAG IV ONE ×2 (05:42→06:05)
[2021-08-13] MEDS ORDERED: D5W-LR W/ 20 UNITS OXYTOCIN 1,000 ML IV SCH (05:45)
[2021-08-13 05:53] LABS: HIV INTERPRETATION NEGATIVE (NEGATIVE)
[2021-08-13] MEDS ORDERED: PENICILLIN G POTASSIUM 5,000,000 (5Mm) UNIT VIAL IVPB SCH (07:30)
[2021-08-13] MEDS: PENICILLIN G POTASSIUM 2,500,000 UNIT in DEXTROSE 5%-WATER - 100 ML IVPB SCH ×4 (07:54→20:58)
[2021-08-13] MEDS ORDERED: ACETAMINOPHEN 325 MG TABLET (FP) ONE (08:31)
[2021-08-13] MEDS ORDERED: PRENATAL VITAMINS W/ FOLIC ACID TABLET (FP) PO ONE (10:04)
[2021-08-13] MEDS: PRENATAL VITAMINS W/ FOLIC ACID TABLET (FP) PO SCH (10:05)
[2021-08-13] MEDS: PANTOPRAZOLE 20 MG TABLET PO SCH (10:18)
[2021-08-13 12:54] LABS: POC NITRAZINE POS
[2021-08-13] MEDS: IBUPROFEN 600 MG TABLET (FP) PO PRN (18:43)
[2021-08-14] MEDS: IBUPROFEN 600 MG TABLET (FP) PO PRN ×3 (03:02→19:59)
[2021-08-14 08:41] LABS: BASO % 0.3 % (0-2.0); EOS % 0.7 % (0-4.5); HEMATOCRIT 29.9 % (32.4-45.2); LYMPH % 17.5 % (8-40); MCH 26.6 pg (25.7-33.7); MCHC 33.6 g/dl (32.0-36.0); MEAN CELL VOLUME 79.2 fl (80-96); MEAN PLT VOLUME 8.2 fl (7.5-11.1); MONO % 7.7 % (3.8-10.2); NEUT % 73.8 % (42.8-82.8); RBC 3.77 M/mm3 (3.60-5.2); RDW 17.7 % (11.6-15.6)
[2021-08-14] MEDS: PRENATAL VITAMINS W/ FOLIC ACID TABLET (FP) PO SCH (09:05)
[2021-08-14] MEDS: PANTOPRAZOLE 20 MG TABLET PO SCH (09:52)
[2021-08-14] MEDS ORDERED: DIPHTH,PERTUSS(ACELL),TET 0.5 ML DISP.SYRIN IM ONE (10:00)
[2021-08-14 10:33] LABS: PLATELET COUNT 178 10^3/uL (134-434)
[2021-08-15] MEDS: IBUPROFEN 600 MG TABLET (FP) PO PRN (05:51)
[2021-08-15] MEDS: PRENATAL VITAMINS W/ FOLIC ACID TABLET (FP) PO SCH (09:43)
[2021-08-15] MEDS: PANTOPRAZOLE 20 MG TABLET PO SCH (09:43)
[2021-08-15 15:01] VITALS: BP 121/69; PULSE 83; TEMP 98.4
== END 2021-08-15 13:00 | disposition home or self-care (01) | DRG 560 ==
LOC: JDEL 22:39 → JLDR 23:35 → J3W 08-13 15:20
PROVIDERS: ADMIT Obstetrics & Gynecology Maternal & Fetal Medicine; ATTEND Obstetrics & Gynecology Maternal & Fetal Medicine
PROC: 10E0XZZ Delivery of Products of Conception, External Approach (ICD-10-PCS; principal; 2021-08-13)
DX: O42.02 Full-term premature rupture of membranes, onset of labor within 24 hours of rupture (principal); O32.6XX0 Maternal care for compound presentation, not applicable or unspecified; O99.52 Diseases of the respiratory system complicating childbirth; J45.909 Unspecified asthma, uncomplicated; O16.9 Unspecified maternal hypertension, unspecified trimester; O99.824 Streptococcus B carrier state complicating childbirth; Z98.84 Bariatric surgery status; Z3A.38 38 weeks gestation of pregnancy; Z37.0 Single live birth
CPT/HCPCS: 36415; 59409; 80048; 83986-QW; 85025; 85610; 85730; 86850; 86900; 86901; 87389; 90715; C9803; U0003; U0005